=== PATIENT | female | born 1980 | race African-American/Black ===

== ENCOUNTER → 2020-07-03 | Outpatient (CLI) | payer MEDICAID ==
[2015-04-14 11:45] VITALS: BP 155/98
[~2020-07-03] MED LIST: ACET-704 PO; ALPR1TAB2 PO; LIDOCAINE 2%/EPI 1:100,000 20 ML VIAL. INJ ONE; OMEP40CA45 PO; PROM25TA10 PO; SERT100T PO; SUCR1TAB35 PO; TRAM50TA PO
--- NOTE | 2020-07-04 11:01 | RAD ---
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 This is a benign concordant result. Recommend the patient return to routine annual mammographic screening. Electronically signed by: Carole Cloud MD (07/05/2020 12:42 PM) [id number] ORIGINAL REPORT Examination: 1. Right breast stereotactic core needle biopsy. 2. Right digital postprocedure mammogram. INDICATION: 40-year-old woman with right breast calcifications identified on diagnostic mammography a nd recommended for stereotactic biopsy. She had initially presented with a palpable lump at an unrela amy location in the same breast which had spontaneously resolved. COMPARISON: Bilateral digital diagnostic mammogram of 05/31/2020 TECHNIQUE: Informed consent was obtained and an appropriate procedural pause observed. Using standard sterile te chnique, stereotactic imaging guidance and local anesthesia, multiple vacuum assisted 9 gauge core bi opsy samples of the targeted calcifications in the upper outer quadrant right breast were obtained. A yesenia-shaped biopsy marker was deployed at the biopsy site and hemostasis ensured with direct breast compression for several minutes. Specimen radiograph showed sampling of targeted fine, amorphous calcifications in the biopsy specimen . Post procedure mammogram showed satisfactory positioning of a yesenia-shaped biopsy marker in the area of mammographic interest with a few residual amorphous calcifications barely visible within the dense f ibroglandular tissue. No post biopsy hematoma. Postprocedure instructions reviewed and patient discharged in stable condition to follow up with her referring physician. IMPRESSION: Successful right breast are detected biopsy of amorphous calcifications in the posterior upper outer quadrant right breast. Pathology results are pending. An addendum will be issued once pathology resul ts become available. Electronically signed by: Carole Cloud MD (07/04/2020 10:59 AM) [id number]
--- NOTE | 2020-07-04 16:06 | PATHOLOGY ---
[facility] Accession Number: [id number] . 01 Material submitted: . breast - RIGHT BREAST CORE BIOPSY. Modifiers: right . 01 Clinical history: . CALCS IN GRID . 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 - Rare microcalcifications identified. (JPM:tejal; 07/04/2020) QMS 07/04/2020 1423 Local . 02 Comment: There is no atypia or evidence of malignancy. (JPM:tejal; 07/04/2020) . 02 Electronically signed: . Som Ames MD, Pathologist NPI- [id number] . 01 Gross description: . The specimen is received in formalin, labeled "Gifty belbower, right breast tissue". Received within a plastic cassette are multiple needle cores of fibrofatty tissue measuring 2.8 x 1.7 x 0.5 cm in aggregate dimensions. The specimen is submitted entirely in cassettes A1 through A3. The cold ischemic time is 13 minutes. The total formalin fixation time is 12 hours and 32 minutes. ([facility]; 07/03/2020) QAC/QAC 07/03/2020 1503 Local . 02 Pathologist provided ICD-10: N60.31, N60.41, N61.0 . 02 CPT . 988541 Specimen Comment: A courtesy copy of this report has been sent to [phone] Specimen Comment: Report sent to Performed at: 01 [facility] [address], [place], [place] [id number] MD Jamie Fonseca MD Phone: [phone] Performed at: 02 [facility] [address], [place] [id number] MD Som Ames MD Phone: [phone]
== END | disposition home or self-care (01) ==
LOC: MAMMO 08:12
PROVIDERS: ATTEND Surgery
DX: R92.0 Mammographic microcalcification found on diagnostic imaging of breast (principal); N60.31 Fibrosclerosis of right breast; N60.41 Mammary duct ectasia of right breast; N61.0 Mastitis without abscess; I10 Essential (primary) hypertension; K21.9 Gastro-esophageal reflux disease without esophagitis; F41.9 Anxiety disorder, unspecified; Z98.51 Tubal ligation status; Z98.890 Other specified postprocedural states; Z79.899 Other long term (current) drug therapy; Z88.1 Allergy status to other antibiotic agents
CPT/HCPCS: 19081; 77065; 88305; C1713; J3490; 19085; 77022